=== PATIENT | female | born 1965 | race African-American/Black ===

== ENCOUNTER 2019-11-24 10:06 | Emergency (ER) | payer BC ==
[~2019-11-24] VITALS: Ht 170.2 cm; Wt 86.3 kg
[~2019-11-24 10:06] MED LIST: LASIX 20 MG TAB20 MG PO; NORCO 5-325 TA1 EACH PO; ZANTAC 150MG T150 M1 PO; ZOFRAN ODT4 MG PO
[2019-11-24] MEDS ORDERED: GABAPENTIN 100100 MG PO (10:10)
[2019-11-24] MEDS ORDERED: FLEXERIL PO (10:10)
[2019-11-24] MEDS ORDERED: NAPROSYN500 MG PO (10:10)
[2019-11-24] MEDS ORDERED: NORCO 10-325 T1 EACH PO (12:05)
[2019-11-24 12:30] VITALS: BP 127/78
== END 2019-11-24 12:31 | disposition home or self-care (01) ==
LOC: ER 10:06
DX: M51.26 Other intervertebral disc displacement, lumbar region (principal); M71.38 Other bursal cyst, other site; M79.604 Pain in right leg; Z98.51 Tubal ligation status; Z98.890 Other specified postprocedural states; Z79.899 Other long term (current) drug therapy